=== PATIENT | female | born 1955 | race Caucasian/White ===

== ENCOUNTER 2019-09-01 19:12 | Emergency (ER) | payer MEDICARE ==
[2019-09-01 19:18] VITALS: BP 138/84; PULSE 78; RESP 18; TEMP 98.4
[2019-09-01] MEDS ORDERED: DIPH,PERTUS(ACELL)TETVAC-LF 0.5 ML VIAL IM ONE (19:19)
[2019-09-01] MEDS ORDERED: LIDOCAINE/EPINEPHR/TETRACAINE 5 ML BOTTLE TOPICAL ONE (19:32)
[2019-09-01] MEDS ORDERED: LIDOCAINE 1% INJ 10MG/ML (20 ML MDV) SQ ONE (19:32)
--- NOTE | 2019-09-01 19:52 | CT ---
EXAMINATION TYPE: CT brain minerva paulino DATE OF EXAM: 09/01/2019 COMPARISON: None HISTORY: Pt fell, hitting front of head. Laceration middle/left side CT DLP: 1528.8 mGycm Automated exposure control for dose reduction was used. TECHNIQUE: CT scan of the head and cervical spine are performed without contrast. FINDINGS: Cervical vertebra have normal alignment. There is old anterior fusion at C4 and C5 and C6 and C7. The posterior elements are intact. There is no evidence of a fracture. There is a few millim eter anterior subluxation of C7 in relation to T1. Ventricles have normal size. There is no mass effect nor midline shift. There is no sign of intracran ial hemorrhage. The calvarium is intact. Skull base is intact. IMPRESSION: Negative CT scan of the brain. Multilevel cervical spine fusion surgery. No fracture.
--- NOTE | 2019-09-01 20:20 | ED ---
Fall HPI - General Source: patient Mode of arrival: ambulatory <Mamta Campa - Last Filed: 09/01/19 21:25> <Keli Bsutos - Last Filed: 09/04/19 00:04> - General Chief Complaint: Fall Stated Complaint: Fell/head injury Time Seen by Provider: 09/01/19 19:19 - History of Present Illness Initial Comments: 63-year-old female with history of MS on no anticoagulation therapy presents emergency department for chief complaint of fall with head laceration. Patient states she tripped over the steps for a hot tub falling appropriate wall hitting the front of her forehead. Patient states that she did not lose conscious. Patient states that she has pain at laceration site denies any headache nausea vomiting dizziness visual changes. Patient denies any new neck pain upper extremity or lower extremity weakness sensation deficit speech changes. Patient states she has no other complaints. Denies any areas of injury including upper or lower extremities. Aside from small abrasions over the knee she states are superficial denies any limitations in range of motion of the knee difficulty weightbearing. Remaining review of systems negative. Upon arrival patient appears well signs of acute distress. Patient's tetanus is not up-to-date (Mamta Campa) - Related Data Allergies Allergy/AdvReac Type Severity Reaction Status Date / Time acetaminophen [From Vicodin] Allergy Hallucinati Verified 09/01/19 19:18 ons hydrocodone [From Vicodin] Allergy Hallucinati Verified 09/01/19 19:18 ons Review of Systems ROS Other: All systems not noted in ROS Statement are negative. <Mamta Campa - Last Filed: 09/01/19 21:25> ROS Other: All systems not noted in ROS Statement are negative. <Keli Bustos - Last Filed: 09/04/19 00:04> ROS Statement: Those systems with pertinent positive or pertinent negative responses have been documented in the HPI. Past Medical History Additional Past Medical History / Comment(s): MS History of Any Multi-Drug Resistant Organisms: None Reported Past Surgical History: Orthopedic Surgery Additional Past Surgical History / Comment(s): Neck surgery, back surgery, Past Psychological History: No Psychological Hx Reported Smoking Status: Never smoker Past Alcohol Use History: None Reported, Occasional Past Drug Use History: None Reported <Mamta Campa - Last Filed: 09/01/19 21:25> General Exam Limitations: no limitations <Mamta Campa - Last Filed: 09/01/19 21:25> - General Exam Comments Initial Comments: General: The patient is awake and alert, in no distress, and does not appear acutely ill. Eye: +3 mm pupils are equal, round and reactive to light, extra-ocular movements are intact. No nystagmus. There is normal conjunctiva bilaterally. No signs of icterus. Ears, nose, mouth and throat: There are moist mucous membranes and no oral lesions. No raccoon or Peña sign. Patient has a large laceration to the right aspect of the forehead. No evidence of large contusions hematomas of the remainder of scalp exam. Small contusion under laceration. No exposure of skull. Neck: The neck is supple, there is no tenderness or JVD. No midline tend erness. Patient with cervical spine patient is a 4 flex extend or flex and rotate the cervical spine without difficulty. No complaints of pain. Cardiovascular: There is a regular rate and rhythm. No murmur, rub or gallop is appreciated. Respiratory: Lungs are clear to auscultation, respirations are non-labored, breath sounds are equal. No wheezes, stridor, rales, or rhonchi. Musculoskeletal: Normal ROM, no tenderness. Strength 5/5. Sensation intact. Radial pulses equal bilaterally 2+. Neurological: A&O x 3. CN II-XII intact, There are no obvious motor or sensory deficits. Coordination appears grossly intact. Speech is normal. Skin: Skin is warm and dry and no rashes or lesions are noted. irregularly shaped laceration to the forehead. Psychiatric: Cooperative, appropriate mood & affect, normal judgment. (Mamta Campa) Course Vital Signs 09/01/19 19:14 Temperature 98.4 F Pulse Rate 78 Respiratory 18 Rate Blood Pressure 138/84 O2 Sat by Pulse 97 Oximetry Procedures - Laceration Laceration #1 Consent Obtained: verbal consent Indication: laceration Site: face Size (cm): 3 (2.5) Description: irregular Depth: simple, single layer Pre-repair: wound explored, irrigated extensively, deep structures intact Type of Sutures: nylon Size of Sutures: 6-0 Number of Sutures: 11 Technique: simple, interrupted Patient Tolerated Procedure: well, no complications <Mamta Campa - Last Filed: 09/01/19 21:25> - Laceration Laceration #1 Additional Comments: 63yo female presenting to the ER for cc of head laceration, head injury. NO LOC. No thinners. Patient has no focal deficits. Laceration repaired,wound edges approximated well, no pain with topical LET sln. Pt appears well. Return parameters and wound care discussed. Discussed case with Dr. Bustos. Pt discharged appearing well. (Mamta Campa) Medical Decision Making <Keli Bustos - Last Filed: 09/04/19 00:04> - Medical Decision Making I was available for consultation in the emergency department. The history and physical exam were done by the midlevel provider. I was consulted for this patients care. I reviewed the case with the midlevel provider and based on their presentation of the patient, I agree with the assessment, medical decision making and plan of care as documented. Chart was dictated using [employer] dictation software. Attempts were made to correct any dictation errors however some typographical errors may persist. (Keli Bustos) Disposition Is patient prescribed a controlled substance at d/c from ED?: No Time of Disposition: 20:19 Decision to Admit Reason: Admit from EC Decision Date: 09/01/19 Decision Time: 20:19 <Mamta Campa - Last Filed: 09/01/19 21:25> <Keli Bustos - Last Filed: 09/04/19 00:04> Clinical Impression: Head injury, Facial laceration, Fall, Abrasion of knee, bilateral Disposition: HOME SELF-CARE Condition: Good Instructions (If sedation given, give patient instructions): Fall Prevention (E D), Facial Laceration (ED) Additional Instructions: Please use medication as discussed. Please follow-up with family doctor in the next 2 days. Suture removal in 5 days. Please return to emergency room if the symptoms increase or worsen or for any other concerns. Referrals: Nonstaff,Physician [Primary Care Provider] - 1-2 days
[2019-09-01] MEDS ORDERED: ACETAMINOPHEN TAB 325 MG TAB PO STA (20:28)
== END 2019-09-01 20:39 | disposition home or self-care (01) ==
LOC: EC 19:12
DX: S01.81XA Laceration without foreign body of other part of head, initial encounter (principal); S80.211A Abrasion, right knee, initial encounter; S80.212A Abrasion, left knee, initial encounter; Z23 Encounter for immunization; Z88.5 Allergy status to narcotic agent; Z88.6 Allergy status to analgesic agent; W18.2XXA Fall in (into) shower or empty bathtub, initial encounter; Y93.E1 Activity, personal bathing and showering
CPT/HCPCS: 72125; 70450; 90715; 99283; 12013; 90471; J2001

== ENCOUNTER 2021-09-09 16:10 | Emergency (ER) | payer MEDICARE ==
[2021-09-09 17:32] VITALS: TEMP 97.9
[2021-09-09] MEDS ORDERED: BACITRACIN OINT 1 EACH PACKET TOPICAL ONE (19:19)
--- NOTE | 2021-09-09 19:24 | ED ---
General Adult HPI - General Chief complaint: Wound/Laceration Stated complaint: Rt Leg Wound Time Seen by Provider: 09/09/21 18:53 Source: patient, family, RN notes reviewed Mode of arrival: ambulatory Limitations: no limitations - History of Present Illness Initial comments: This is a well-appearing 65-year-old female alert and oriented 4, presents to the emergency room with an abrasion to her right lower leg that will not stop bleeding. She states that she noticed while walking in [employer] that she was bleeding. She does not remember sustaining an injury. The bleeding is controlled at this time. She does state that she takes an aspirin a day. -: hour(s) (3) Location: right, lower extremity Severity scale (1-10): 0 Consistency: now resolved - Related Data Allergies Allergy/AdvReac Type Severity Reaction Status Date / Time acetaminophen [From Vicodin] Allergy Hallucinati Verified 09/09/21 17:29 ons hydrocodone [From Vicodin] Allergy Hallucinati Verified 09/09/21 17:29 ons Review of Systems ROS Statement: Those systems with pertinent positive or pertinent negative responses have been documented in the HPI. ROS Other: All systems not noted in ROS Statement are negative. Past Medical History Additional Past Medical History / Comment(s): MS History of Any Multi-Drug Resistant Organisms: None Reported Past Surgical History: Orthopedic Surgery Additional Past Surgical History / Comment(s): Neck surgery, back surgery, Past Psychological History: No Psychological Hx Reported Smoking Status: Never smoker Past Alcohol Use History: Occasional Past Drug Use History: None Reported General Exam Limitations: no limitations General appearance: alert, in no apparent distress Head exam: Present: atraumatic, normocephalic, normal inspection Eye exam: Present: normal appearance, PERRL, EOMI. Absent: scleral icterus, conjunctival injection, periorbital swelling ENT exam: Present: normal exam, normal oropharynx, mucous membranes moist Neck exam: Present: normal inspection, full ROM. Absent: tenderness, meningismus, lymphadenopathy Respiratory exam: Present: normal lung sounds bilaterally. Absent: respiratory distress, wheezes, rales, rhonchi, stridor Cardiovascular Exam: Present: regular rate, normal rhythm, normal heart sounds. Absent: systolic murmur, diastolic murmur, rubs, gallop, clicks Neurological exam: Present: alert, oriented X3 Psychiatric exam: Present: normal affect, normal mood Skin exam: Present: warm, dry, normal color, abrasion (1 cm abrasion to the right lateral aspect of the lower leg; she also has a 2 cm abrasion to the medial aspect of the right lower leg with dried scale). Absent: rash Course Vital Signs 09/09/21 17:30 Temperature 97.9 F Pulse Rate 91 Respiratory 18 Rate Blood Pressure 167/106 O2 Sat by Pulse 96 Oximetry Medical Decision Making - Medical Decision Making Patient's abrasion is cleaned and no longer bleeding. There is no evidence of erythema. Her tetanus shot is up-to-date. Bacitracin dressing was placed and patient was directed to return if any new or worsening symptoms including redness, fever or drainage. Case discussed with Dr. Rosenberg Disposition Clinical Impression: Abrasion Disposition: HOME SELF-CARE Condition: Good Instructions (If sedation given, give patient instructions): Abrasion (ED) Additional Instructions: Keep wound clean and dry. Use bacitracin dressing once a day. Return to the emergency room with any new or worsening symptoms including signs of infection, fever, drainage or pain. Is patient prescribed a controlled substance at d/c from ED?: No Referrals: Nonstaff,Physician [Primary Care Provider] - 1-2 days Time of Disposition: 19:25
[2021-09-09 20:10] VITALS: BP 120/91; PULSE 63; RESP 16
== END 2021-09-09 20:11 | disposition home or self-care (01) ==
LOC: EC 16:10
DX: S80.811A Abrasion, right lower leg, initial encounter (principal); X58.XXXA Exposure to other specified factors, initial encounter
CPT/HCPCS: 99283

== ENCOUNTER 2021-09-10 05:17 | Emergency (ER) | payer MEDICARE ==
[2021-09-10] MEDS ORDERED: diphenhydrAMINE 50 MG CAP PO STA (05:36)
[2021-09-10] MEDS ORDERED: predniSONE 20 MG TAB PO STA (05:36)
[2021-09-10] MEDS ORDERED: FAMOTIDINE 20 MG TAB PO STA (05:36)
--- NOTE | 2021-09-10 06:29 | ED ---
Allergic Reaction HPI - General Chief complaint: Allergic Reaction Stated complaint: Allergic Reaction Time Seen by Provider: 09/10/21 06:03 Source: patient, RN notes reviewed Mode of arrival: ambulatory Limitations: no limitations - History of Present Illness Initial Comments: patient is a 65-year-old female who presents to ED with ALLERGIC reaction. P atient states she is itchy all over body the worst being located on anterior and posterior right shoulder. patient states that itching started last night around 11:00 and was woken up this morning at 4:30 with increased itchiness with swelling in her lips and cheeks. Patient denies any new medications, shortness of breath palpitations, difficulty breathing, swelling of tongue. patient's son states patient has been staying with him down in [place] for past 2 days and is currently in the process of moving. Patient states she was in ER yesterday cut on her right lower leg but states wound has not changed since yesterday - Related Data Previous Rx's Medication Instructions Recorded Cephalexin [Keflex] 500 mg PO Q6HR #28 cap 09/10/21 predniSONE 50 mg PO DAILY #5 tab 09/10/21 Allergies Allergy/AdvReac Type Severity Reaction Status Date / Time acetaminophen [From Vicodin] Allergy Hallucinati Verified 09/09/21 17:29 ons hydrocodone [From Vicodin] Allergy Hallucinati Verified 09/09/21 17:29 ons Review of Systems ROS Statement: Those systems with pertinent positive or pertinent negative responses have been documented in the HPI. ROS Other: All systems not noted in ROS Statement are negative. Past Medical History Additional Past Medical History / Comment(s): MS History of Any Multi-Drug Resistant Organisms: None Reported Past Surgical History: Orthopedic Surgery Additional Past Surgical History / Comment(s): Neck surgery, back surgery, Past Psychological History: No Psychological Hx Reported Smoking Status: Never smoker Past Alcohol Use History: Occasional Past Drug Use History: None Reported General Exam Limitations: no limitations General appearance: alert, in no apparent distress Head exam: Present: atraumatic, normocephalic, normal inspection Eye exam: Present: normal appearance, PERRL, EOMI. Absent: scleral icterus, conjunctival injection, periorbital swelling ENT exam: Present: normal oropharynx (No oral swelling noted), mucous membranes moist Expanded Mouth exam: Present: tongue normal Throat exam: normal inspection Neck exam: Present: normal inspection, tenderness, full ROM Respiratory exam: Present: normal lung sounds bilaterally. Absent: respiratory distress, wheezes, rales, rhonchi, stridor Cardiovascular Exam: Present: regular rate, normal rhythm, normal heart sounds. Absent: systolic murmur, diastolic murmur, rubs, gallop, clicks Right Hip exam: Present: normal inspection Upper Leg exam: Present: normal inspection Knee exam: Present: normal inspection Lower Leg exam: Present: tenderness, laceration, erythema Back exam: Present: normal inspection Neurological exam: Present: alert, oriented X3 Skin exam: Present: warm, dry, rash, urticaria Course Vital Signs 09/10/21 09/10/21 05:20 07:55 Temperature 98.2 F Pulse Rate 95 90 Respiratory 17 16 Rate Blood Pressure 154/99 137/89 O2 Sat by Pulse 97 95 Oximetry - Reevaluation(s) Reevaluation #1: 09/10/21 07:09 Patient reevaluated states that she still feels that she Still Has Some Notable Swelling. Patient Will Be Given Additional Medications. Medical Decision Making - Medical Decision Making 65-year-old presented ALLERGIC reaction. Patient states is improved at this time there is no clear source for. Patient does have evidence of infection to her right lower leg. Patient was started on oral antibiotics, patient we discharged in stable condition return parameters were discussed. Disposition Clinical Impression: Allergic reaction, Cellulitis of right leg Disposition: HOME SELF-CARE Condition: Stable Instructions (If sedation given, give patient instructions): General Allergic Reaction (ED) Additional Instructions: Please return to the Emergency Department if symptoms worsen or any other concerns. Continue Benadryl every 6 hours. Prescriptions: Cephalexin [Keflex] 500 mg PO Q6HR #28 cap predniSONE 50 mg PO DAILY #5 tab Is patient prescribed a controlled substance at d/c from ED?: No Referrals: Nonstaff,Physician [Primary Care Provider] - 1-2 days Time of Disposition: 08:56
[2021-09-10] MEDS ORDERED: methylPREDNISolone SOD SUCCI 125 MG/2 ML VIAL IV STA (07:08)
[2021-09-10] MEDS ORDERED: diphenhydrAMINE 50 MG/ML 1 ML VIAL IVP STA ×2 (07:08→08:52)
[2021-09-10] MEDS ORDERED: SODIUM CHLORIDE 0.9% 500 ML 500 ML IV ONE (07:08)
[2021-09-10] MEDS ORDERED: ACETAMINOPHEN TAB 325 MG TAB PO STA (08:09)
[2021-09-10 09:19] VITALS: BP 133/89; PULSE 85; RESP 18; TEMP 98.4
== END 2021-09-10 09:17 | disposition home or self-care (01) ==
LOC: SUPCPDRO 05:17 → EC 05:17
DX: T78.40XA Allergy, unspecified, initial encounter (principal); L03.115 Cellulitis of right lower limb; Z72.89 Other problems related to lifestyle
CPT/HCPCS: 99283; 96374; 96375; 96376; J1200; J2930; J7512

== ENCOUNTER 2021-09-11 20:35 | Emergency (ER) | payer MEDICARE ==
[2021-09-11 20:40] VITALS: TEMP 98
[2021-09-11] MEDS ORDERED: diphenhydrAMINE 50 MG/ML 1 ML VIAL IVP STA (21:18)
[2021-09-11] MEDS ORDERED: predniSONE 20 MG TAB PO STA (21:18)
[2021-09-11] MEDS ORDERED: FAMOTIDINE 20 MG/2 ML VIAL IV STA (21:18)
--- NOTE | 2021-09-11 21:37 | ED ---
Skin/Abscess/FB HPI - General Chief complaint: Skin/Abscess/Foreign Body Stated complaint: Rash,Sore Throat Time Seen by Provider: 09/11/21 21:14 Source: patient Mode of arrival: ambulatory Limitations: no limitations - History of Present Illness Initial comments: This patient is a 65-year-old woman who presents to be evaluated for which she is calling hives that have come on over the past 2-3 days. She reports that she is staying with family member as she had to move out of her previous residence. She noticed that she was developing hives and feeling itchy mainly over the trunk but then also now on the extremities. She had been seen here yesterday for the same, and was seen in the little better following treatment. She was discharged with prescription for Keflex to take due to a cellulitis that was noted and also prednisone. It appears that the patient has not yet started the prednisone. She states that the itching and hives recurred tonight. Patient denies any shortness of breath, wheezing, cough or other respiratory symptoms. No nausea, vomiting or diarrhea. No mucous membrane involvement MD complaint: rash -: days(s) Tetanus Up to Date: yes Location: generalized Severity: moderate Quality: other (Itching) Consistency: constant Improves with: none Worsens with: none Context: other Associated symptoms: itching - Related Data Home Medications Medication Instructions Recorded Confirmed Baclofen 10 mg PO TID 09/11/21 09/11/21 Cholecalciferol [Vitamin D3 (25 50 mcg PO DAILY 09/11/21 09/11/21 Mcg = 1000 Iu)] Escitalopram [Lexapro] 20 mg PO DAILY 09/11/21 09/11/21 Fexofenadine HCl 180 mg PO DAILY 09/11/21 09/11/21 Meloxicam [Mobic] 15 mg PO DAILY 09/11/21 09/11/21 Mv-Min/Folic/Vit K/[id number] 1 tab PO DAILY 09/11/21 09/11/21 [Alive Women's 50 Plus Tablet] Potassium Chloride ER [K-Dur 10] 10 meq PO DAILY 09/11/21 09/11/21 Pramipexole [Mirapex] 0.75 mg PO DAILY@1400,2000 09/11/21 09/11/21 Triamterene/Hydrochlorothiazid 1 tab PO DAILY 09/11/21 09/11/21 [Triamterene-Hctz 37.5-25 mg Tb] Turmeric Root Extract [Turmeric] 1,000 mg PO BID 09/11/21 09/11/21 Vitamin C/Biotin [Hair, Skin and 1 tab PO BID 09/11/21 09/11/21 Nails Chew] lisinopriL 20 mg PO DAILY 09/11/21 09/11/21 modafiniL [Provigil] 200 mg PO DAILY 09/11/21 09/11/21 Previous Rx's Medication Instructions Recorded Cephalexin [Keflex] 500 mg PO Q6HR #28 cap 09/10/21 hydrOXYzine HCL [Atarax] 50 mg PO QID PRN #30 tab 09/12/21 predniSONE 60 mg PO DAILY #30 tab 09/12/21 Allergies Allergy/AdvReac Type Severity Reaction Status Date / Time acetaminophen [From Vicodin] Allergy Hallucinati Verified 09/11/21 22:32 ons hydrocodone [From Vicodin] Allergy Hallucinati Verified 09/11/21 22:32 ons Review of Systems ROS Statement: Those systems with pertinent positive or pertinent negative responses have been documented in the HPI. ROS Other: All systems not noted in ROS Statement are negative. Constitutional: Denies: fever, chills Eyes: Denies: eye pain, eye discharge ENT: Denies: throat pain, congestion Respiratory: Denies: cough, dyspnea, wheezes Cardiovascular: Denies: chest pain, palpitations Gastrointestinal: Denies: abdominal pain, nausea, vomiting, diarrhea Skin: Reports: rash, pruritus Past Medical History Additional Past Medical History / Comment(s): MS History of Any Multi-Drug Resistant Organisms: None Reported Past Surgical History: Orthopedic Surgery Additional Past Surgical History / Comment(s): Neck surgery, back surgery, Past Psychological History: No Psychological Hx Reported Smoking Status: Never smoker Past Alcohol Use History: Occasional Past Drug Use History: None Reported General Exam Limitations: no limitations General appearance: alert, in no apparent distress Head exam: Present: atraumatic, normocephalic Eye exam: Present: normal appearance, PERRL, EOMI. Absent: scleral icterus, conjunctival injection ENT exam: Present: normal oropharynx, mucous membranes moist Respiratory exam: Present: normal lung sounds bilaterally. Absent: respiratory distress, wheezes, rales, rhonchi, stridor Neurological exam: Present: alert Skin exam: Present: warm, dry, intact, normal color, urticaria Course Vital Signs 09/11/21 09/11/21 20:37 23:28 Temperature 98.0 F Pulse Rate 89 74 Respiratory 16 18 Rate Blood Pressure 153/83 119/69 O2 Sat by Pulse 98 95 Oximetry Disposition Clinical Impression: Allergic reaction Disposition: HOME SELF-CARE Condition: Good Instructions (If sedation given, give patient instructions): Urticaria (ED) Prescriptions: hydrOXYzine HCL [Atarax] 50 mg PO QID PRN #30 tab PRN Reason: Itching predniSONE 60 mg PO DAILY #30 tab Is patient prescribed a controlled substance at d/c from ED?: No Referrals: None,Stated [Primary Care Provider] - 1-2 days
[2021-09-11] MEDS ORDERED: hydrOXYzine HCL 50 MG/ML 1 ML VIAL IM STA (22:54)
[2021-09-11 23:28] VITALS: PULSE 74; RESP 18
[2021-09-12 01:21] VITALS: BP 130/86
== END 2021-09-12 01:21 | disposition home or self-care (01) ==
LOC: EC 20:35
DX: T78.40XA Allergy, unspecified, initial encounter (principal); Z79.52 Long term (current) use of systemic steroids; Z79.1 Long term (current) use of non-steroidal anti-inflammatories (NSAID); Z79.899 Other long term (current) drug therapy
CPT/HCPCS: 96374; 96375; 96372; 99283; J1200; J3410; J7512

== ENCOUNTER 2022-02-23 08:06 | Day surgery (SDC) | payer MEDICARE ==
[2022-02-21 09:07] VITALS: BMI 35.3
[~2022-02-23 08:06] MED LIST: LACTATED RINGERS 1,000 ML IV SCH
[2022-02-23 08:35] VITALS: TEMP 98.9
[2022-02-23] MEDS ORDERED: LIDOCAINE 1% (10MG/ML) FOR IV START INTRADERMA ONE (08:40)
[2022-02-23] MEDS ORDERED: PROPOFOL 10 MG/ML 20 ML VIAL IV ONE (09:07)
--- NOTE | 2022-02-23 09:27 | P.PCN ---
Date of Procedure: 02/23/22 Procedure(s) Performed: BRIEF HISTORY: Patient is a 66-year-old pleasant female scheduled for an elective colonoscopy as a part of screening for colorectal neoplasia. Her last colonoscopy was 10 years ago. PROCEDURE PERFORMED: Colonoscopy. PREOPERATIVE DIAGNOSIS: Screening for colon cancer. IV sedation per Anesthesia. PROCEDURE: After informed consent was obtained, the patient, was brought into the endoscopy unit. IV sedation was administered by Anesthesia under continuous monitoring. Digital rectal examination was normal. Initially the Olympus CF-160 flexible video colonoscope was then inserted in the rectum, and could not be advanced beyond the sigmoid colon. As the scope was removed and a pediatric colonoscope was then inserted in the rectum gradually advanced into the cecum without any difficulty. Careful examination was performed as the scope was gradually being withdrawn. Ileocecal valve and the appendiceal orifice were visualized and appeared normal. Prep was excellent. Mucosa of the cecum, ascending colon, transverse colon, descending colon, sigmoid colon, and rectum appeared normal. Scattered sigmoid diverticulosis. Retroflexion was performed in the rectum and no lesions were seen. The patient tolerated the procedure well. IMPRESSION: Normal-appearing colon from rectum to cecum with no evidence of colorectal neoplasia . Scattered sigmoid diverticulosis. RECOMMENDATIONS: Findings of this examination were discussed with the patient as well as her family. She was advised to have a repeat screening colonoscopy in 10 years..
[2022-02-23 09:42] VITALS: RESP 18
[2022-02-23 10:11] VITALS: BP 144/79; PULSE 69
== END 2022-02-23 10:37 | disposition home or self-care (01) ==
LOC: ORWHC2ENDO 08:06
PROVIDERS: ATTEND Internal Medicine Gastroenterology
DX: Z12.11 Encounter for screening for malignant neoplasm of colon (principal); K57.30 Diverticulosis of large intestine without perforation or abscess without bleeding; Z79.1 Long term (current) use of non-steroidal anti-inflammatories (NSAID); Z79.899 Other long term (current) drug therapy
CPT/HCPCS: J2704; G0121

== ENCOUNTER → 2022-04-20 | Outpatient (CLI) | payer MEDICARE ==
--- NOTE | 2022-04-22 13:13 | MM ---
Reason for Exam: Screening (asymptomatic). Last screening mammogram was performed 12 month(s) ago. Patient History: Menarche at age 13. First Full-Term at age 16. Left ovary removed at age 40. Right ovary removed at age 40. Hysterectomy at age 40. Postmenopausal. Risk Values: Shae 5 year model risk: 1.1%. NCI Lifetime model risk: 3.8%. Film Views: Bilateral CC views were taken. Bilateral MLO views were taken. Right AT views were taken. Left XCCL views were taken. Prior Study Comparison: 01/11/2019 Left MG diagnostic mammo LT w CAD - 2, [facility]. 05/15/2020 Bilateral MG 3D diag mammo w/cad WILSON - 2, [facility]. 09/07/2021 Bilateral MG screening mammo w CAD - 2, [facility]. Tissue Density: There are scattered fibroglandular densities. Findings: Analyzed By CAD. There is occasional scattered benign-appearing round calcification bilaterally redemonstrated. There is no suspicious group of microcalcifications or new suspicious mass in either breast. Overall Assessment: Benign, BI-RAD 2 Management: Screening Mammogram of both breasts in 1 year. A clinical breast exam by your physician is recommended on an annual basis and results should be correlated with mammographic findings. Electronically signed and approved by: Freddie Levin M.D.
== END | disposition home or self-care (01) ==
LOC: RADMAMWWP 13:25
PROVIDERS: ATTEND Family Medicine
DX: Z12.31 Encounter for screening mammogram for malignant neoplasm of breast (principal)
CPT/HCPCS: 77063; 77067

== ENCOUNTER → 2022-05-27 | Outpatient (CLI) | payer MEDICARE ==
--- NOTE | 2022-05-28 03:32 | MR ---
EXAMINATION TYPE: MR brain/cspine wo/w DATE OF EXAM: 05/27/2022 COMPARISON: HISTORY: Multiple sclerosis CONTRAST: Standard multiplanar, multisequence MRI departmental protocol images were obtained without contrast a nd with 9 ml mL intravenous Gadavist gadolinium contrast. Brain Diffusion images show no evidence of an acute infarct. Ventricles have fairly normal size. There is n o mass effect or midline shift. On the T2 and FLAIR images there are some scattered foci of increased signal in the periventricular white matter. There is 8mm focus in the right posterior parietal lobe and 5 mm focus left parietal lobe. There is small foci up to 4 mm in the left posterior temporal lobe . There is 2 mm focus lateral right frontal lobe. No evidence of cerebral edema. Brainstem is intact. Cerebellum is intact. Corpus callosum is intact. Contrast images show normal enhancement of the veno us sinuses. There is no pathologic enhancement. There is no evidence of orbital mass. Sella turcica i s normal. IMPRESSION: There are a few white matter high signal foci as above that could relate to demyelinating disease. No enhancement. Also consider microvascular ischemia. Cervical spine. There is multilevel fusion surgery from C4 to C6. There is metal artifact at C4-5. Cervical vertebra have Fairly normal alignment. There is hypertrophic mild posterior endplate spur fo rmation at the C3-4 level with narrowing of the spinal canal. Canal measures 6 mm. The cervical cord shows no edema. Contrast images show no pathologic enhancement. At C6-7 there is mild subluxation def ormity and posterior mild disc herniation. The canal measures 7.5 mm. No significant stenosis. There is similar change at at T1-T2. There is some increased signal on the sagittal T2 images in the anterior cervical cord at the C2 leve l that could be focus of demyelinating disease. This is also demonstrated on the axial T2 images whic h do not entirely include this area. Abnormality measures 2 x 6 mm. IMPRESSION: Previous fusion surgery. Moderate hypertrophic posterior osteophyte formation at C3-4 with some narro wing of the spinal canal to 6 mm. There is some slight increased signal in the anterior cervical cord in the midline at the C2 level th at could be focus of demyelinating disease.
== END | disposition home or self-care (01) ==
LOC: RADMRIMAIN 14:49
PROVIDERS: ATTEND Psychiatry & Neurology Neurology
DX: G35 Multiple sclerosis (principal); M99.71 Connective tissue and disc stenosis of intervertebral foramina of cervical region
CPT/HCPCS: 70553; 72156; A9585

== ENCOUNTER → 2023-08-01 | Outpatient (CLI) | payer MEDICARE ==
--- NOTE | 2023-08-02 12:07 | MR ---
EXAMINATION TYPE: MR cervical spine wo/w con DATE OF EXAM: 08/01/2023 3:19 PM CLINICAL INDICATION:Female, 67 years old with history of G35 MULTIPLE SCLEROSIS, Ataxia, Spinal Steno sis, Follow-up MS COMPARISON: 05/27/2022. TECHNIQUE: Multi planar, multi sequence imaging was performed utilizing: T1-weighted, T2-weighted, an d turbo inversion recovery imaging of the cervical spine. IV Contrast: 9.5 cc Gadavist FINDINGS: Alignment: The cervical vertebral bodies have preserved heights. Grade 1 anterolisthesis of C7 on T1, T1 on T2, T2 on T3, and T3 on T4 Bones: Suspected postsurgical changes at C4 C5 C6 and C7. Hardware present at the anterior aspect of C4 on C5. There is ankylosis of these vertebral bodies. No abnormal postcontrast enhancement. Cord: Mild white matter changes in the anterior spinal cord at the level of C2. Extending 8 mm in cau docranial length. This appears grossly similar to prior on 05/27/2022. No abnormal postcontrast enhance ment. Discs: Multilevel disc desiccation is present. C2-C3: No significant disc pathology. The spinal canal is patent. No neural foraminal stenosis. C3-C4: A disc osteophyte complex is present which minimally narrows the ventral subarachnoid space. Bilateral facet and uncovertebral joint arthropathy are present with moderate to severe bilateral ne ural foraminal stenosis. C4-C5: The disc is surgically absent. Bilateral facet and uncovertebral joint arthropathy are present with mild to moderate bilateral neural foraminal stenosis. C5-C6: The disc is surgically absent. No neural foraminal stenosis. C6-C7: The disc is surgically absent. No neural foraminal stenosis. C7-T1: A disc osteophyte complex is present with moderate spinal canal stenosis. Bilateral facet and uncovertebral joint arthropathy are present with mild bilateral neural foraminal stenosis. Other: None. IMPRESSION: 1. Postsurgical changes without abnormal postcontrast enhancement. 2. Degeneration changes with Moderate C7-T1 spinal canal stenosis There is moderate severe bilateral C3-C4 neural femoral stenosis. 3. White matter changes within the spinal cord at the level of C2 is unchanged from prior. 4. Multilevel grade 1 anterolisthesis throughout the upper thoracic spine.
== END | disposition home or self-care (01) ==
LOC: RADMRIMAIN 14:02
PROVIDERS: ATTEND Psychiatry & Neurology Neurology
DX: G35 Multiple sclerosis (principal); M47.813 Spondylosis without myelopathy or radiculopathy, cervicothoracic region; M48.03 Spinal stenosis, cervicothoracic region; R27.0 Ataxia, unspecified; M99.71 Connective tissue and disc stenosis of intervertebral foramina of cervical region; M43.14 Spondylolisthesis, thoracic region; R90.82 White matter disease, unspecified
CPT/HCPCS: 72156; A9585

== ENCOUNTER → 2024-05-01 | Outpatient (CLI) | payer MEDICARE ==
--- NOTE | 2024-05-01 19:00 | MM ---
Reason for Exam: Screening (asymptomatic). Last mammogram was performed 2 year(s) and 1 month(s) ago. Patient History: Menarche at age 13. First Full-Term at age 16. Left ovary removed at age 40. Right ovary removed at age 40. Hysterectomy at age 40. Postmenopausal. Risk Values: Shae 5 year model risk: 1.1%. NCI Lifetime model risk: 3.5%. Prior Study Comparison: 01/11/2019 Left MG diagnostic mammo LT w CAD - 2, [facility]. 05/15/2020 Bilateral MG 3D diag mammo w/cad [facility] - 2, [facility]. 09/07/2021 Bilateral MG screening mammo w CAD - [facility]. 04/20/2022 Bilateral MG 3D screening mammo w/cad, [facility]. Tissue Density: There are scattered areas of fibroglandular density. Findings: Analyzed By CAD. There is no suspicious group of microcalcifications or new suspicious mass in either breast. Overall Assessment: Negative, BI-RAD 1 Management: Screening Mammogram of both breasts in 1 year. . Patient should continue monthly self-breast exams. A clinical breast exam by your physician is recommended on an annual basis. This exam should not preclude additional follow-up of suspicious palpable abnormalities. Note on Shae scores and lifetime risk: 1. A Shae score greater than 3% is considered moderate risk. If this is the case, consider specialist referral to assess eligibility for a risk reducing agent. 2. If overall lifetime risk for the development of breast cancer is 20% or higher, the patient may qualify for future screening with alternating mammogram and breast MRI. Electronically signed and approved by: Geovanny Garza M.D. Radiologist
== END | disposition home or self-care (01) ==
LOC: RADMAMWWP 09:52
PROVIDERS: ATTEND Family Medicine
DX: Z12.31 Encounter for screening mammogram for malignant neoplasm of breast (principal); Z78.0 Asymptomatic menopausal state
CPT/HCPCS: 77063; 77067

== ENCOUNTER → 2024-12-24 | Outpatient (CLI) | payer MEDICARE ==
--- NOTE | 2024-12-27 17:27 | MR ---
EXAMINATION TYPE: MR cspine/tspine/lspine wo con DATE OF EXAM: 12/24/2024 10:04 PM COMPARISON: None. CLINICAL INDICATION: Female, 69 years old with history of M47.22, M47.24, M47.26, MS, Pain throughout the spine and down legs. numbness and tingling in fingers, history of multiple surgeries. TECHNIQUE: Multiplanar multiecho imaging on a 3.0 Nina magnet is performed through the cervical spin e. IV Contrast: mL (None, if empty) FINDINGS: The craniovertebral junction is normal. Vertebral body alignment there is anterior cervica l fusion C4-C7. There is a grade 1 spondylolisthesis of C7 on T1. Plain film correlation recommended prior to surgical intervention. C7-T1: Disc uncovering is present with anterior thecal sac contact. No AP spinal canal stenosis is p resent. Ligamentum flavum laxity is present. This has some left posterior lateral thecal sac contact. Canal appears stenotic in the sagittal plane with close approximation to the spinal cord the axial p leeann. No signal abnormality is evident within the cord. C6-7: Disc is not identified. No spinal canal stenosis or neural foraminal stenosis is present. C5-6: Disc is not identified. No spinal canal stenosis or neural foraminal stenosis is present. C4-5: Disc is not identified. Left paracentral endplate spurring has anterior cord contact. Cord defo rmity is not identified. No AP spinal canal stenosis is present. Mild foraminal narrowing is present greater on the left. C3-4: No focal disc herniation or significant disc bulge is evident. No spinal canal stenosis. Some foraminal narrowing is present. C2-3: No focal disc herniation or significant disc bulge is evident. No spinal canal stenosis or tee ral foraminal stenosis is present. There may be a 1.1 cm plaque posterior to the C2 vertebral level can be compatible with multiple scle rosis. Vague increased signal may be within spinal cord posterior to the C3-4 level. Plaquing may be present measuring 0.9 cm posterior to the C3-4 disc level to the right of midline. IMPRESSION: 1. Spinal canal stenosis C7-T1 secondary to disc uncovering and ligamentum flavum laxity. This may mcdonald s some cord contact on the left. 2. Grade 1 spondylolisthesis of C7 anterior and T1. 3. Anterior cervical fusion C4-C7. 4. There may be due to plaques which could be associated with multiple sclerosis within the upper cer vical spine posterior to the C2 and C3 levels. EXAMINATION TYPE: MR cspine/tspine/lspine wo con DATE OF EXAM: 12/24/2024 10:04 PM COMPARISON: None. CLINICAL INDICATION: Female, 69 years old with history of M47.22, M47.24, M47.26, MS, Pain throughout the spine and down legs. numbness and tingling in fingers, history of multiple surgeries. TECHNIQUE: Multiplanar, multiecho imaging on a 3.0 Nina magnet is performed through the thoracic spi ne. IV Contrast: mL (None, if empty) FINDINGS: No suspicious signal changes to suggest multiple sclerosis within the thoracic spinal cord. Vertebral body heights are preserved. Disc desiccation is present. The spinal canal stenosis at the C7-T1 level appears less suspicious on the thoracic spine images. Ligamentum flavum laxity and disc uncovering however remain present with c ord contact. T2-3: There is a minimal grade 1 spondylolisthesis. Mild disc uncovering is anterior thecal sac conta cting cord contact. No spinal canal stenosis is present. T3-4: Very minimal anterolisthesis of T3 on T4 is present. No spinal canal stenosis is present. Disc uncovering may have cord contact. No deformity is evident. T6-7: Minimal disc bulge has anterior thecal sac contact. No cord contact or cord deformity is eviden t. No spinal canal stenosis or neural foraminal stenosis. T7-8: There is a large disc herniation with significant anterior thecal sac compression. Cord contact and cord deformity is present. AP spinal canal stenosis posterior disc herniation is present. Spinal canal is narrowed to 0.5 cm. T9-10: Some mild central disc protrusion may be present with mild to moderate anterior thecal sac con tact. T10-11: Minimal disc bulge may be present. No cord contact or cord deformity is evident. Facet hypert rophy has moderate posterior lateral thecal sac compression. No cord contact is evident. T11-12: Broad-based disc bulge is present slightly greater to the right paracentral region. This come s in close approximation with the spinal cord. No cord contact or cord deformity is evident. No spina l canal stenosis is evident. T12-L1: Broad-based disc bulge is present. This is cord contact. Facet hypertrophy has posterior late ral thecal sac compression. Some lateral canal narrowing is present. Foraminal stenosis appears to be present. IMPRESSION: 1. Large central disc herniation T7-8 with significant thecal sac impression and cord deformity. Spin al canal stenosis is present. 2. Disc uncovering T2-3 may have cord contact without stenosis. 3. Mild grade 1 spondylolisthesis of T3 anterior and T4. 4. Additional areas of mild disc bulging or protrusion without spinal canal stenosis. 5. Disc bulging may have cord contact at T12-L1. Some lateral canal narrowing due to facet hypertroph y at T12-L1 is present. EXAMINATION TYPE: MR cspine/tspine/lspine wo con DATE OF EXAM: 12/24/2024 10:04 PM COMPARISON: None. CLINICAL INDICATION: Female, 69 years old with history of M47.22, M47.24, M47.26, MS, Pain throughout the spine and down legs. numbness and tingling in fingers, history of multiple surgeries. TECHNIQUE: Multiplanar, multisequence images of the lumbar spine were acquired. IV Contrast: mL (None, if empty) FINDINGS: Cord ends at the L1-L2 level. No definite signal abnormality within the distal spinal cord is identified. L5-S1: Central disc protrusion is present. No AP spinal canal stenosis is present. Facet hypertrophy contributing to severe bilateral foraminal stenosis more so on the right. L4-L5: No focal disc herniation or significant disc bulge. No spinal canal stenosis. Neural foramen are patent. L3-L4: Disc spacers present. Pedicle screws are present. No spinal canal stenosis is evident. Some fa cet hypertrophy is present with posterior lateral left thecal sac compression L2-L3: There is loss of disc height to this level. Mild disc bulges left and right paracentral thecal sac compression. No AP spinal canal stenosis. Facet hypertrophy is present. Pedicles screws are present at the L3 level with some beam hardening artifact. Facet hypertrophy has left posterior lateral thecal sac compression at the superior endplate of L3 L1-L2: Disc bulging has moderate anterior thecal sac flattening. Cord appears to terminate just above this level. No spinal canal stenosis is present. Facet hypertrophy is present. Bilateral severe fora agueda stenosis is present. T12-L1: Disc bulging on the MRI and lumbar spine portion of the study at T12-L1 appears greater than on the thoracic images. Some cord deformity may be present. Lateral canal narrowing may be less promi nent. Severe bilateral foraminal stenosis is present. IMPRESSION: 1. Multilevel degenerative disc changes discussed above. Foraminal stenosis is present no suspicious changes from multiple sclerosis within the distal spinal cord. [facility], , 12/27/2024 5:25 PM
== END | disposition home or self-care (01) ==
LOC: RADMRIMAIN 20:45
PROVIDERS: ATTEND Neurological Surgery
DX: M48.061 Spinal stenosis, lumbar region without neurogenic claudication (principal); M51.14 Intervertebral disc disorders with radiculopathy, thoracic region; M47.25 Other spondylosis with radiculopathy, thoracolumbar region; M47.22 Other spondylosis with radiculopathy, cervical region; M43.16 Spondylolisthesis, lumbar region; G35 Multiple sclerosis
CPT/HCPCS: 72141; 72146; 72148

== ENCOUNTER → 2025-01-23 | Outpatient (CLI) | payer MEDICARE ==
--- NOTE | 2025-01-23 16:02 | CT ---
EXAMINATION TYPE: CT cervical spine wo con DATE OF EXAM: 01/23/2025 COMPARISON: CT brain and C-spine dated 09/01/2019 CLINICAL INDICATION: Female, 69 years old with history of M47.22 SPONDYLOSIS WITH RADICULOPATHY, CERV ICAL RE; PHH, neck pain TECHNIQUE: CT scan of the cervical spine is obtained without contrast, axial images are obtained, sa gittal and coronal reformatted images are also reviewed. CT DLP: 533.[address] CTDI: mGy Automated exposure control for dose reduction was used. Findings: The craniovertebral junction relationship and prevertebral soft tissues are normal. There has been intradiscal fusion of the C4-5 vertebral segments. There is been spontaneous or natura l fusion of C5-6. There is a 5 to 6 mm anterolisthesis of C3 C7 on T1. There is moderate to marked degenerative disc disease at the C7/T1 level where there is moderate to m arked disc space narrowing and spondylosis. The C2-3 and C3-4 discs are well-preserved. There is no b lalo compromise of the cervical spinal canal. There is severe bony neural foraminal encroachment at C3 -4 level, right greater than left, secondary to marked facet degeneration. The paraspinal soft tissue s are unremarkable. IMPRESSION: 1. Postsurgical changes of interbody fusion at C4-5 and spontaneous fusion of C5-6. 2. Marked degenerative disease at C7/T1 with anterolisthesis of C7 on T1 as described above. 3. No bony encroachment of the cervical canal. 4. Marked bony neural foraminal encroachment at the C3-4 level bilaterally, right greater than left. [facility], , 01/23/2025 4:00 PM
== END | disposition home or self-care (01) ==
LOC: RADCTMAIN 15:02
PROVIDERS: ATTEND Neurological Surgery
DX: M47.22 Other spondylosis with radiculopathy, cervical region (principal); M50.11 Cervical disc disorder with radiculopathy, high cervical region; M43.12 Spondylolisthesis, cervical region; M50.13 Cervical disc disorder with radiculopathy, cervicothoracic region; Z98.1 Arthrodesis status
CPT/HCPCS: 72125

== ENCOUNTER → 2025-06-02 | Outpatient (CLI) | payer MEDICARE ==
--- NOTE | 2025-06-02 10:43 | XR ---
EXAMINATION TYPE: XR cervical spine w flex/ext DATE OF EXAM: 06/02/2025 10:15 AM INDICATION: Patient age:Female; 69 years old; Reason for study: M47.26 M47.22 OTHER SPONDYLOSIS WITH RADICULOPATHY; PHH, pain COMPARISON: CT cervical spine 01/23/2025, MR C-spine/T-spine/L-spine 12/24/2024, MR cervical spine 2022 TECHNIQUE: The cervical spine was imaged in the frontal, lateral, lateral flexion, lateral extension, on the odontoid, and swimmer's, projections. FINDINGS: Postsurgical changes from fusion with bilateral pedicular screws and rods involving the C3, C4, and C 5 levels. The rods extend into the upper thoracic spine with bilateral pedicular screws at the C1-C2 levels. Poor visualization of the lower cervical spine due to the patient's shoulders. Hardware appea rs intact. Additional postsurgical changes from interbody fusion at C4-C5. There is known spontaneous fusion at C5-C6. No evidence for acute fracture. Multilevel degenerative disc disease with disc spac e narrowing and endplate sclerosis. Soft tissues are within normal limits. The odontoid appears intac t. IMPRESSION: 1. Postsurgical changes from posterior fusion from C3 through T2. Hardware appears intact. 2. No fracture. [facility], , 06/02/2025 10:41 AM
== END | disposition home or self-care (01) ==
LOC: RADXRMAIN 09:30
PROVIDERS: ATTEND Neurological Surgery
DX: M47.26 Other spondylosis with radiculopathy, lumbar region (principal); M47.22 Other spondylosis with radiculopathy, cervical region; Z98.1 Arthrodesis status
CPT/HCPCS: 72052